=== PATIENT | female | born 2005 | race Caucasian/White ===

== ENCOUNTER 2024-12-19 09:00 | Day surgery (SDC) | payer SELFPAY ==
[2024-12-19] VITALS (9 sets, daily range): BP systolic 87–117; BP diastolic 55–88; PULSE 59–105; RESP 16; TEMP 36–36.5; O2SAT 96–100; BMI 20.2
[2024-12-19 09:28] LABS: Internal QC Validated? YES +Cl - CLEAR BKGD; Pregnancy, Urine Negative Negative; Record Kit Lot#,Urine Preg 0000964736
[2024-12-19] MEDS: Lactated Ringers 1,000 ML 15 ML IV (09:33)
--- NOTE | 2024-12-19 09:49 | PCM.PRE.AN2 ---
ASA Classification* ASA Classification ASA Classification: 1 Assessment & Plan Anesthesia* Anesthesia Assessment Anesthesia Assessment: Discussed sedation and/or anesthesia options, risks, benefits, and alternatives with patient/parents/legal guardian/POA. Questions invited. The patient/parents/legal guardian/POA seems to understand and agrees to proceed with anesthesia plan. Reviewed the physical assessment, medical history, allergy history and patient home medications list prior to surgery/procedure/anesthetic and documented any changes. Performed airway and anesthesia risk assessments. Anesthesia Type Anesthesia Type: MAC History Source History Obtained from:: Patient and Chart Anesthesia Focused Assessment* Temperature: 97.7 F Pulse Rate: 105 Blood Pressure: 117/88 Respiratory Rate: 16 Pulse Ox: 100 Oxygen Delivery Method: Room Air Airway Assessment Mouth opens: >3 cm Mallampati Score: I Teeth Condition: Intact Neck Range of motion (ROM): Full ROM Labs Anesthesia Preop lab: CBC CHEMISTRY COAG Urine Test Negative Negative Today, 09:15 Pre-Assessment Diagnosis/Proposed Procedure Planned Operative Procedure(s): COLONOSCOPY Anesthesia History Anesthesia History - oracle apex developer: Anesthesia History - oracle apex developer Hx Hospitalization No 12/14/24 11:52 Any Problems With Anesthesia No 12/14/24 11:52 Cholinesterase deficiency No 12/14/24 11:52 You/Your Family Experience No 12/14/24 11:52 fever (hyperthermia) with Relationship Recent Exposure to Contagious No 12/19/24 09:25 Disease Does patient have nerve No 12/14/24 11:52 stimulator Patient instructed to have device shut off --Does patient have Pacemaker No 12/19/24 09:25 or ICD? When Was Last Pacemaker Check QUESTION #4 FULL TEXT: You/Your Family Experience fever (hyperthermia) with Anesthesia Last Oral Intake Last Oral intake: Last Oral Intake NPO since 00:00 12/19/24 09:25 Meds taken in AM with sips of No 12/19/24 09:25 water? Meds patient instructed to take am of surgery PONV PONV - oracle apex developer: PONV - oracle apex developer Female Yes 12/14/24 11:52 HX of Motion Sickness No 12/14/24 11:52 HX of N/V After Surgery No 12/14/24 11:52 Non-Smoker Yes 12/14/24 11:52 Duration of Surgery greater No 12/14/24 11:52 than 60 minutes Number of Risk Factors 2 12/14/24 11:52 PONV Score Moderate Risk 12/14/24 11:52 Height & Weight Height & Weight: Anesthesia: Height & Weight Height 5 ft 3 in 12/19/24 09:25 Weight: 52 kg 12/19/24 09:25 Body Mass Index (BMI) 20.2 12/19/24 09:25 Respiratory Assessment Respiratory Assessment - oracle apex developer: Respiratory Tract Infection Hx - oracle apex developer Hx Respiratory Tract Infection No 12/14/24 11:52 STOP Sleep Apnea STOP Sleep Apnea - oracle apex developer: STOP Sleep Apnea - oracle apex developer Hx Hypertension No 12/14/24 11:52 Hx Sleep Apnea No 12/14/24 11:52 CPAP BIPAP Do you snore loudly (louder No 12/14/24 11:52 than talking or can be heard Do you often feel tired/ No 12/14/24 11:52 fatigued/ sleepy during daytime? Has anyone observed you stop No 12/14/24 11:52 breathing during sleep? STOP Results Negative 12/14/24 11:52 QUESTION #5 FULL TEXT : Do you snore loudly (louder than talking or can be heard through closed doors)? Tobacco Use History Tobacco Use History - oracle apex developer: Tobacco Use History - oracle apex developer Tobacco Use Smoking Status Never smoker 12/14/24 11:52 Hx Tobacco Use No 12/14/24 11:52 Years Smoking Packs Smoked per Day Smoking Cessation Date was within the last 15 years Hx Smoking Cessation Date Hx Smoking Cessation Counseling Hematologic Medial History Hematologic Hx - oracle apex developer: Hematologic Medical Hx - ad clerk Hx of Blood Transfusion No 12/14/24 11:52 Hx of Transfusion in last 3 No 12/14/24 11:52 Months Date of Last Transfusion (if within last 3 months) Ever experience any problems No 12/14/24 11:52 with transfusion(s)? Specify any problems Hx of Preganancy in last 3 No 12/14/24 11:52 Months Nurse Filling Out Transfusion [email or web address] 12/14/24 11:52 & Questions: Date: 12/14/24 12/14/24 11:52 Time: 11:55 12/14/24 11:52 Patient unable to answer at this time (ie. confused, unrespo /Reproduction History /Reproductive History - oracle apex developer: /Reproductive Hx- oracle apex developer Hx Now No 12/14/24 11:52 Gestational Age (in weeks): EDC: Hx Hx Para Hx Section SAB No 12/14/24 11:52 Active Medications Active Medications: Current Medications Generic Name Dose Route Start Last Admin Trade Name Freq PRN Reason Stop Dose Admin Lactated Ringer's 1,000 mls @ 15 mls/hr 12/19/24 09:30 12/19/24 09:33 IV 15 mls/hr .Q48H MARIANNE Administration PFSH Medical History Easy bruising Lower abdominal pain Bloody diarrhea Home Medications ?Medication ?Instructions ?Recorded ?Last Taken ?Type NK 12/06/24 Unknown History Allergy/AdvReac Type Severity Reaction Status Date / Time No Known Allergies Allergy Verified 12/19/24 09:22 Family History Grandfather Colon cancer Aunt Colon cancer Surgical History S/P appendectomy Social History Smoking Status: Never smoker alcohol intake: never Review of Systems (Anesthesia) ROS Narrative System reviewed and no additional complaints, except as documented.
--- NOTE | 2024-12-19 10:35 | PCM.HP.BLA ---
History and Physical Date of Admission: 12/19/24 Date of Service: 12/06/24 MR#: [id number] Acct: [id number] Name: DOROTHY IVERSON Rep #: [id number] : 2005 Provider: Dr. Renee Vidal MD Age/Sex: 19/F Location: [facility] Status: Signed Intake Vital Signs 12/06/2512:22 Height 5 ft 3 in Weight: 120 lb BMI 21.2 BP 120/80 Blood Pressure Location Rt brachial Position Sitting Respiration 16 Intake Visit Reasons: RECTAL BLEEDING Chief Complaint: rectal bleeding Client Service Professional Required: No Is patient in pain?: No Allergies No Known Allergies Allergy (Unverified 12/06/24 13:23) Medications ?Medication ?Instructions ?Recorded ?Confirmed ?Type NK 12/06/24 12/06/24 History Have you fallen in the past year?: No PFSH Medical History (Updated 12/06/24 @ 13:22 by Marcella Bang) Lower abdominal pain Bloody diarrhea Surgical History (Updated 12/06/24 @ 13:22 by Marcella Bang) S/P appendectomy Family History (Updated 12/06/24 @ 13:22 by Marcella Bang) Grandfather Colon cancer Aunt Colon cancer Social History (Updated 12/06/24 @ 13:22 by Marcella Bang) Smoking Status: Never smoker alcohol intake: never HPI HPI HPI: 19-year-old female presents for colonoscopy due to bright red blood/diarrhea x 1 week. Patient states last week from Wednesday to had diarrhea with bright red blood and initially was having more bleeding and that decreased throughout the week. Patient states she did start to have lower abdominal pain on Wednesday which did last until last Wednesday. Patient states she did have a previous episode about a year ago but did not have any bloody diarrhea only diarrhea at that time. Patient's maternal aunt diagnosed colon cancer at age 50 and maternal grandfather diagnosed greater than age 50 patient's unsure. Patient denies any history of UC or Crohn's. Patient has bowel movements daily does have normal stools currently and prior to diarrhea did also have normal stools. ROS General General: No weight change, appetite, fatigue, colon cancer, breast cancer or weakness HEENT HEENT: No difficulty swallowing, eye injury, eye surgery, swollen glands or hoarseness Endo Endocrine: No thyroid disease, diabetes mellitus, thyroid cancer, Hair loss, heat intolerance or cold intolerance Skin Skin: No rash or changing moles Breast Breast: No left breast lump, right breast lump, nipple discharge, breast pain, abnormal mammogram, abnormal US or breast enlargement Musc Musculoskeletal: No back problems, arthritis, rheumatoid arthritis, gout or joint pain Cardio Cardiovascular: No murmur, pacemaker, heart disease, atrial fibrillation, high blood pressure, heart attack, heart stent, palpitations, shortness of breath with exertion or chest pain Psych Psychiatric: No depression, anxiety or hearing voices Resp Respiratory: No shortness of breath, No sleep apnea, No cough, No COPD, No asthma, No emphysema and No wheezing Gastro Gastrointestinal: Yes abdominal pain, No nausea or vomiting, Yes diarrhea, No constipation, Yes blood in stool, No acid reflux, No hemorrhoids, No ulcers, No gallbladder problem and No black,tarry stools To Hematologic: No blood thinners, No blood disorders, No bleeding, No anemia and No blood clots Neuro Neurologic: No system reviewed and no additional complaints, except as documented, No as per HPI, No abnormal gait, No abnormal hearing, No abnormal movements, No abnormal speech, No behavioral changes, No burning sensations, No confusion, No convulsions, No disequilibrium, No dizziness, No localized weakness, No frequent falls, No headache(s), No lack of coordination, No loss of vision, No memory loss, No numbness, No other visual disturbances, No radicular pain, No restless legs, No sensory deficit, No syncope, No tingling, No tremor(s), No weakness and No other Exam Const General: cooperative, healthy appearing, comfortable and no acute distress [facility] Head: normocephalic and atraumatic Neck Neck: supple Resp Effort & Inspection: normal respiratory effort Cardio Rate: regular rate GI Inspection: non-distended Palpation: soft and nontender Skin General: no rashes or lesions noted Neuro General: CN's II-XI intact bilaterally Extrem General: normal to inspection Psych Mental Status: mental status grossly normal Attitude: cooperative Assessment and Plan Assessment and Plan (1) Bloody diarrhea: Status: Acute Orders: Orders Colonoscopy 12/19/24 Plan I have discussed the above with the patient. I have offered the patient colonoscopy for evaluation. I have explained the risks/benefits of the procedure and described the procedure. I have discussed the risks with the patient, including but not limited to: infection, bleeding, perforation of the GI tract requiring emergency surgery, inability to complete the procedure, injury to any internal organs, complications of anesthesia, etc. - the patient understands and agrees to proceed. I have answered all the patient's questions to the patient's satisfaction and the patient has no further questions. The patient has been given instructions for the colon cleansing preparation. 1 day MiraLAX Dulcolax prep Renee Vidal M.D. Pager: [phone] [facility] [address] [place] [address], [address] [place] [address] Office: [phone] Coding Level of Care Code Off vis,new,level 3 Diagnoses Bloody diarrhea R19.7 Clinical Quality Measures Falls Risk Screening/Assistive Devices Have you fallen in the past year?: No 12/06/24 1529 <Electronically signed by Renee Vidal MD> Date Renee Vidal MD
--- NOTE | 2024-12-19 11:06 | OP.COLON_ITS ---
Patient Name: Carolyn Christianson Procedure Date: 12/19/2024 9:29 AM Date of : 2005 Age: 19 Procedure: Colonoscopy Indications: Rectal bleeding Providers: Renee Vidal MD Referring MD: No Primary Care Physician Medicines: Monitored Anesthesia Care Patient Profile: This is a 19 year old female. Last Colonoscopy: none. The patient's first colonoscopy is today. Complications: No immediate complications. Procedure: Pre-Anesthesia Assessment: - Prior to the procedure, a History and Physical was performed, and patient medications and allergies were reviewed. The patient's tolerance of previous anesthesia was also reviewed. The risks and benefits of the procedure and the sedation options and risks were discussed with the patient. All questions were answered, and informed consent was obtained. Prior Anticoagulants: The patient has taken no anticoagulant or antiplatelet agents. ASA Grade Assessment: Per anesthesia. After reviewing the risks and benefits, the patient was deemed in satisfactory condition to undergo the procedure. After I obtained informed consent, the scope was passed under direct vision. Throughout the procedure, the patient's blood pressure, pulse, and oxygen saturations were monitored continuously. The Colonoscope was introduced through the anus and advanced to the terminal ileum. The colonoscopy was performed without difficulty. The patient tolerated the procedure well. The quality of the bowel preparation was good. Scope In: 10:45:45 AM Scope Withdrawal Time 0 hours 8 minutes 35 seconds Scope Out: 11:01:40 AM Total Procedure Duration Time 0 hours 15 minutes 55 seconds Findings: Hemorrhoids were found on perianal exam. Non-bleeding internal hemorrhoids were found. The hemorrhoids were Grade I (internal hemorrhoids that do not prolapse). The terminal ileum appeared normal. The entire examined colon appeared normal. Impression: - Hemorrhoids found on perianal exam. - Non-bleeding internal hemorrhoids. - The examined portion of the ileum was normal. - The entire examined colon is normal. - No specimens collected. Recommendation: - Discharge patient to home. - Resume previous diet. - Continue present medications. - Repeat colonoscopy at age 44. - Repeat colonoscopy for screening purposes. Procedure Code(s): --- Professional --- 96356, Colonoscopy, flexible; diagnostic, including collection of specimen(s) by brushing or washing, when performed (separate procedure) Diagnosis Code(s): --- Professional --- K64.0, First degree hemorrhoids K62.5, Hemorrhage of anus and rectum CPT copyright 2021 [employer]. All rights reserved. The codes documented in this report are preliminary and upon negative retoucher review may be revised to meet current compliance requirements. MD Renee Swift MD 12/19/2024 11:06:32 AM This report has been signed electronically. Number of Addenda: 0 Note Initiated On: 12/19/2024 9:29 AM
--- NOTE | 2024-12-19 11:07 | OP.PROVAT_ITS ---
12/19/2024 No Primary Care Physician Re : Colonoscopy procedure for Carolyn Christianson Dear Care Physician This procedure was performed on Thursday, December 19, 2024. My impressions and recommendations are as follows: Impressions : - Hemorrhoids found on perianal exam. - Non-bleeding internal hemorrhoids. - The examined portion of the ileum was normal. - The entire examined colon is normal. - No specimens collected. Recommendations : - Discharge patient to home. - Resume previous diet. - Continue present medications. - Repeat colonoscopy at age 44. - Repeat colonoscopy for screening purposes. My findings are described in the full procedure note, which is enclosed. If I can be of further assistance, please feel free to contact me at Doctor phone number(s): , Work: . Sincerely, MD Renee Swift MD 12/19/2024 11:06:32 AM This report has been signed electronically.
--- NOTE | 2024-12-19 11:15 | PCM.POST.ANE ---
Anesthesia: Postop Eval I Current Vital Signs Temperature: 97.3 F Pulse Rate: 86 Blood Pressure: 88/56 Respiratory Rate: 16 Pulse Ox: 96 Oxygen Delivery Method: Room Air Assessment Airway patent: Yes Spontaneous unlabored respirations: Yes Mental status: Asleep nausea: No Vomiting: No Anesthesia Complication: No Fluid Hydration Crystalloid volume administer (ml): 800 Total IV fluid infused: 800 Progress Note Anesthesia document: Postop Eval 1 completed: Yes
--- NOTE | 2024-12-19 15:05 | PCM.POSTANE2 ---
Anesthesia Postop Eval I Sum Postop Eval Completion status Anesthesia document: Postop Eval 1 completed: Yes Anesthesia Postop Eval I Summary Anesthesia Postop Eval I Summary: Anesthesia Postop Eval I: Assessment Summary Airway patent Yes 12/19/24 11:16 [email or web address] Spontaneous unlabored Yes 12/19/24 11:16 [email or web address] respirations Mental status Asleep 12/19/24 11:16 [email or web address] nausea No 12/19/24 11:16 [email or web address] Vomiting No 12/19/24 11:16 [email or web address] Anesthesia Postop Eval I: Fluid Summary Crystalloid volume administer 800 12/19/24 11:16 [email or web address] (ml) Colloids volume administered ( ml) Blood Product volume administered (ml) Total IV fluid infused 800 12/19/24 11:16 [email or web address] Anesthesia Postop Eval I: Summary Notes Anesthesia Complication No 12/19/24 11:16 [email or web address] Anesthesia Complication Comment: Post-operative progress note Anesthesia: Postop Eval II Evaluation Mental status: Awake and Calm Pain Level: 0 nausea: No Vomiting: No Complications Anesthesia Complication: No
== END 2024-12-19 12:17 | disposition home or self-care (01) ==
LOC: EN 09:05 → AC 09:09
PROVIDERS: Anesthesiology; Visit Provider Surgery
PROC: 0DJD8ZZ Inspection of Lower Intestinal Tract, Via Natural or Artificial Opening Endoscopic (ICD-10-PCS; CPT 45378; principal; 2024-12-19 10:10)
DX: K64.0 First degree hemorrhoids (principal); K64.4 Residual hemorrhoidal skin tags
CPT/HCPCS: 45378; 81025; J2405